=== PATIENT | male | born 1960 | race Two or more races ===

== ENCOUNTER 2024-03-25 05:59 | Inpatient (IN) | payer MEDICARE, OTHER ==
[~2024-03-25] VITALS: Ht 167.6 cm; Wt 58.1 kg
[2024-03-25 08:30] VITALS: BP 147/81; TEMP 97.5; O2SAT 99
[2024-03-25] MEDS ORDERED: MAGNESIUM HYDROXIDE 30 ML UDC PO PRN (09:00)
[2024-03-25] MEDS ORDERED: MAG HYDROX/AL HYDROX/SIMETH 30 ML UDC PO PRN (09:00)
[2024-03-25] MEDS ORDERED: *INSULIN REGULAR(HUMULIN R)HUM 100 UNIT/ML VIAL SQ PRN (09:00)
[2024-03-25] MEDS ORDERED: Z GUARD REMEDY 4 OZ OINT TP PRN (09:00)
[2024-03-25] MEDS ORDERED: DEXTROSE 50%-WATER 50 ML DISP.SYRIN IV PRN (09:00)
[2024-03-25] MEDS ORDERED: ONDANSETRON HCL/PF 4 MG/2 ML VIAL IVP PRN (09:00)
[2024-03-25 09:56] LABS: BASOPHILS # (AUTO) 0.1 K/uL (0.0-0.2); EOSINOPHILS # (AUTO) 0.1 K/uL (0.0-0.7); EOSINOPHILS % (AUTO) 1.8 % (0.0-6.0); HEMATOCRIT 32 % (39-51); HEMOGLOBIN 10.3 g/dL (13.5-17.5); LYMPHOCYTES # (AUTO) 1.1 K/uL (0.8-4.8); LYMPHOCYTES % (AUTO) 21.1 % (20.0-44.0); MEAN CORPUSCULAR HEMOGLOBIN 27 PG (26.0-33.0); MEAN CORPUSCULAR HGB CONC 32 g/dl (31.0-36.0); MEAN CORPUSCULAR VOLUME 86 fL (80-96); MONOCYTES # (AUTO) 0.4 K/uL (0.1-1.30); MONOCYTES % (AUTO) 8.4 % (2.0-12.0); NEUTROPHILS # (AUTO) 3.5 K/uL (1.8-8.9); NEUTROPHILS % (AUTO) 67.7 % (43.0-81.0); PLATELET COUNT (AUTO) 400 K/uL (150-450); RED BLOOD CELL COUNT(AUTO) 3.74 MIL/uL (4.5-6.0); RED CELL DISTRIBUTION WIDTH 16.1 % (11.5-15.0); WHITE BLOOD COUNT (AUTO) 5.1 K/uL (4.3-11.0)
[2024-03-25 10:18] LABS: ALBUMIN 2.5 g/dL (3.4-5.0); BILIRUBIN,DIRECT 0.1 mg/dL (0.0-0.2); BILIRUBIN,TOTAL 0.2 mg/dL (0.2-1.0); CALCIUM, SERUM 8.4 mg/dL (8.5-10.1); CREATININE 3.8 mg/dL (0.6-1.3); POTASSIUM 5.5 mmol/L (3.5-5.1); TOTAL PROTEIN, SERUM 6.3 g/dL (6.4-8.2)
[2024-03-25] MEDS: CEFTRIAXONE 1 G in IV D5W 50 ML IV SCH (11:30)
[2024-03-25] MEDS: BLOOD SUGAR DIAGNOSTIC 1 EACH STRIP VI SCH (11:40)
[2024-03-25] MEDS: INSULIN REGULAR, HUMAN 100 UNIT/ML 3 ML VIAL SQ PRN (11:43)
[2024-03-25 16:37] VITALS: BP 162/83; TEMP 97.3; O2SAT 99
[2024-03-25] MEDS ORDERED: TAMS-12 PO (19:17)
[2024-03-25] MEDS ORDERED: ESCI10TA PO (19:17)
[2024-03-25] MEDS ORDERED: NIFE60TA2 PO (19:17)
[2024-03-25] MEDS ORDERED: INSU100I26 SQ (19:17)
[2024-03-25] MEDS ORDERED: INSU100I14 SQ (19:17)
[2024-03-25] MEDS ORDERED: CLOP75TA15 PO (19:17)
[2024-03-25] MEDS ORDERED: HYDR100T27 PO (19:17)
[2024-03-25 20:00] VITALS: BP 170/89; TEMP 97.5; O2SAT 99
[2024-03-25] MEDS: IV NS 0.9% 1,000 ML IV PRN (21:17)
[2024-03-25] MEDS: hydrALAZINE HCL IV 20 MG VIAL IV PRN (22:51)
[2024-03-25 23:30] VITALS: BP 146/71; TEMP 97.6; O2SAT 99
[2024-03-26 06:43] LABS: BASOPHILS % (AUTO) 0.9 % (0.0-2.0); EOSINOPHILS # (AUTO) 0.1 K/uL (0.0-0.7); EOSINOPHILS % (AUTO) 2.3 % (0.0-6.0); HEMATOCRIT 29 % (39-51); HEMOGLOBIN 9.4 g/dL (13.5-17.5); LYMPHOCYTES # (AUTO) 0.9 K/uL (0.8-4.8); LYMPHOCYTES % (AUTO) 16.2 % (20.0-44.0); MEAN CORPUSCULAR HEMOGLOBIN 28 PG (26.0-33.0); MEAN CORPUSCULAR HGB CONC 33 g/dl (31.0-36.0); MEAN CORPUSCULAR VOLUME 86 fL (80-96); MONOCYTES # (AUTO) 0.5 K/uL (0.1-1.30); MONOCYTES % (AUTO) 9.2 % (2.0-12.0); NEUTROPHILS % (AUTO) 71.4 % (43.0-81.0); PLATELET COUNT (AUTO) 367 K/uL (150-450); RED BLOOD CELL COUNT(AUTO) 3.32 MIL/uL (4.5-6.0); RED CELL DISTRIBUTION WIDTH 16.1 % (11.5-15.0); WHITE BLOOD COUNT (AUTO) 5.6 K/uL (4.3-11.0)
[2024-03-26 07:32] LABS: CREATININE 3.8 mg/dL (0.6-1.3); MAGNESIUM 2.4 mg/dL (1.8-2.4); PHOSPHORUS 4.2 mg/dL (2.5-4.9); POTASSIUM 5.8 mmol/L (3.5-5.1)
[2024-03-26 08:55] VITALS: BP 170/83; TEMP 97.9; O2SAT 98
[2024-03-26] MEDS: hydrALAZINE HCL 50 MG TABLET PO SCH (08:59)
[2024-03-26] MEDS: SODIUM POLYSTYRENE SULFONATE 15 G/60 ML BOTTLE PO ONE (08:59)
[2024-03-26] MEDS: ESCITALOPRAM OXALATE (10 MG) 10 MG TABLET PO SCH (09:00)
[2024-03-26] MEDS: CLOPIDOGREL BISULFATE 75 MG TABLET PO SCH (09:00)
[2024-03-26] MEDS: NIFEDIPINE XL 60 MG TAB.ER.24 PO SCH (09:02)
[2024-03-26] MEDS: ACETAMINOPHEN 325 MG TABLET PO PRN (11:46)
[2024-03-26] MEDS: BUMETANIDE INJ 0.25 MG/ML VIAL IV ONE (13:00)
[2024-03-26] MEDS ORDERED: SODIUM ZIRCONIUM CYCLOSILICATE 5 GM POWD.PACK PO ONE (13:00)
[2024-03-26 14:27] LABS: CALCIUM, SERUM 8.1 mg/dL (8.5-10.1); CREATININE 3.9 mg/dL (0.6-1.3); POTASSIUM 4.4 mmol/L (3.5-5.1)
[2024-03-26 16:03] VITALS: BP 117/61; TEMP 97.6; O2SAT 98
[2024-03-26 16:50] LABS: APPEARANCE,URINE CLOUDY (CLEAR); BILIRUBIN,URINE NEGATIVE (NEGATIVE); BLOOD, URINE 2+ Ery/uL (NEGATIVE); COLOR,URINE YELLOW (YELLOW); KETONES,URINE NEGATIVE (NEGATIVE); LEUKOCYTE ESTERASE ,URINE 2+ (NEGATIVE); NITRITE, URINE NEGATIVE (NEGATIVE); PH,URINE 7.5 (5.0-8.0); PROTEIN,URINE 2+ mg/dl (NEGATIVE); UGLUCOSE NEGATIVE (NEGATIVE); UROBILINOGEN,URINE 0.2 EU/dL (0.2)
[2024-03-26 16:51] LABS: CREATININE, URINE 62.8 MG/DL (30.0-125.0); URINE TOTAL PROTEIN 277.3 mg/dL (0-11.9)
[2024-03-26 17:08] LABS: RBC,URINE 21-50 /HPF (0-2); WBC,URINE 21-50 /HPF (0-3)
[2024-03-26 17:09] LABS: ADD URINE CULTURE YES; BACTERIA,URINE 4+ /HPF (None Seen); SQUAMOUS EPITHELIAL CELL,UR 0-2 /HPF (None Seen)
[2024-03-26 19:16] LABS: EOSINOPHIL,URINE None Seen
[2024-03-26 20:00] VITALS: BP 104/53; TEMP 97.5; O2SAT 97
[2024-03-26] MEDS: INSULIN GLARGINE, 100 UNIT/ML CARTRIDGE SQ SCH (21:45)
[2024-03-26] MEDS: TAMSULOSIN 0.4 MG CAP.SR.24H PO SCH (21:45)
[2024-03-27 07:06] LABS: BASOPHILS % (AUTO) 0.8 % (0.0-2.0); EOSINOPHILS # (AUTO) 0.1 K/uL (0.0-0.7); EOSINOPHILS % (AUTO) 1.5 % (0.0-6.0); HEMATOCRIT 28 % (39-51); HEMOGLOBIN 9.3 g/dL (13.5-17.5); LYMPHOCYTES # (AUTO) 0.9 K/uL (0.8-4.8); LYMPHOCYTES % (AUTO) 21.4 % (20.0-44.0); MEAN CORPUSCULAR HEMOGLOBIN 29 PG (26.0-33.0); MEAN CORPUSCULAR HGB CONC 33 g/dl (31.0-36.0); MEAN CORPUSCULAR VOLUME 87 fL (80-96); MONOCYTES # (AUTO) 0.4 K/uL (0.1-1.30); MONOCYTES % (AUTO) 9.5 % (2.0-12.0); NEUTROPHILS # (AUTO) 2.8 K/uL (1.8-8.9); NEUTROPHILS % (AUTO) 66.8 % (43.0-81.0); PLATELET COUNT (AUTO) 357 K/uL (150-450); RED BLOOD CELL COUNT(AUTO) 3.21 MIL/uL (4.5-6.0); RED CELL DISTRIBUTION WIDTH 16.6 % (11.5-15.0); WHITE BLOOD COUNT (AUTO) 4.2 K/uL (4.3-11.0)
[2024-03-27 07:45] LABS: ALBUMIN 2.1 g/dL (3.4-5.0); BILIRUBIN,TOTAL 0.2 mg/dL (0.2-1.0); CALCIUM, SERUM 7.8 mg/dL (8.5-10.1); CREATININE 3.8 mg/dL (0.6-1.3); MAGNESIUM 2.1 mg/dL (1.8-2.4); PHOSPHORUS 4.4 mg/dL (2.5-4.9); POTASSIUM 4.2 mmol/L (3.5-5.1); TOTAL PROTEIN, SERUM 5.6 g/dL (6.4-8.2)
[2024-03-27 08:00] VITALS: BP 105/55; TEMP 98; O2SAT 97
[2024-03-27] MEDS ORDERED: CEPH500C2 PO (08:53)
[2024-03-27] MEDS: hydrALAZINE HCL 50 MG TABLET PO SCH (09:00)
[2024-03-27 13:00] VITALS: BP 106/70
[2024-03-28 08:11] LABS: PTH, INTACT 39 pg/mL (15-65)
== END 2024-03-27 18:11 | disposition home health service (06) | DRG 689 ==
LOC: MED 08:03
PROVIDERS: ADMIT Internal Medicine; ATTEND Internal Medicine
DX: N39.0 Urinary tract infection, site not specified (principal); N17.0 Acute kidney failure with tubular necrosis; N18.4 Chronic kidney disease, stage 4 (severe); I13.0 Hypertensive heart and chronic kidney disease with heart failure and stage 1 through stage 4 chronic kidney disease, or unspecified chronic kidney disease; D63.1 Anemia in chronic kidney disease; N40.1 Benign prostatic hyperplasia with lower urinary tract symptoms; R33.8 Other retention of urine; B96.89 Other specified bacterial agents as the cause of diseases classified elsewhere; R31.9 Hematuria, unspecified; L89.892 Pressure ulcer of other site, stage 2; E11.51 Type 2 diabetes mellitus with diabetic peripheral angiopathy without gangrene; Z86.73 Personal history of transient ischemic attack (TIA), and cerebral infarction without residual deficits; Z93.6 Other artificial openings of urinary tract status; E11.22 Type 2 diabetes mellitus with diabetic chronic kidney disease; Z79.4 Long term (current) use of insulin; Z79.02 Long term (current) use of antithrombotics/antiplatelets; Z79.899 Other long term (current) drug therapy; I50.9 Heart failure, unspecified; E87.5 Hyperkalemia
CPT/HCPCS: 36415; 76770-TC; 80048-TC; 80053-TC; 80076-TC; 81001; 82550-TC; 82570-TC; 82962-TC; 83735-TC; 83970; 84100-TC; 84155; 84165; 84300-TC; 85025-TC; 87086-TC; 97110-TC; 97112-TC; 97116-TC; 97530-TC; A4223; G0378; J0360; J0696; J1815; J3490; J7030; J7040; J7060